=== PATIENT | female | born 1965 | race Hispanic/Latino ===

== ENCOUNTER 2021-03-22 09:53 | Inpatient (IN) | payer OTHER ==
[~2021-03-22] VITALS: Ht 162.6 cm; Wt 94.8 kg
[2021-03-22] MEDS ORDERED: MORPHINE 4 MG SYG IM ONE (10:30)
[2021-03-22] MEDS ORDERED: MORPHINE 4 MG SYG IV ONE ×2 (10:30→14:00)
[2021-03-22] MEDS ORDERED: PROPOFOL 10 MG/ML 20ML VIAL IV ONE (10:37)
[2021-03-22] MEDS ORDERED: ONDANSETRON 4MG INJ ONE (10:37)
[2021-03-22] MEDS ORDERED: KETAMINE HCL 100 MG/ML 5ML VIAL IJ ONE (10:48)
[2021-03-22] MEDS ORDERED: MIDAZOLAM HCL 1 MG/ML 2ML VIAL ONE (11:20)
[2021-03-22] MEDS ORDERED: ONDANSETRON 4MG INJ IVP PRN (15:30)
[2021-03-22] MEDS: MORPHINE 2 MG SYG IVP PRN (19:41)
[2021-03-22 21:35] VITALS: BP 146/81
[2021-03-22 23:58] VITALS: BP 159/92
[2021-03-23] MEDS ORDERED: KETOROLAC 30MG VIAL (30MG/ML) IV ONE
[2021-03-23 03:58] LABS: BASOPHILS % (AUTO) 0.6 % (0.0-5.0); EOSINOPHILS % (AUTO) 0.7 % (0.0-8.0); HEMATOCRIT 39.3 % (36-48); LYMPHOCYTES % (AUTO) 25.9 % (21.0-51.0); MEAN CORPUSCULAR HEMOGLOBIN 28.6 pg (27.0-33.0); MEAN CORPUSCULAR HGB CONC 31.6 g/dL (32.0-36.0); MEAN CORPUSCULAR VOLUME 90.6 fL (79-99); MONOCYTES % (AUTO) 9.3 % (3.0-13.0); NEUTROPHILS % (AUTO) 62.9 % (40.0-77.0); PLATELET COUNT (AUTO) 309 K/uL (130-400); RED BLOOD CELL COUNT(AUTO) 4.34 MIL/uL (4.00-5.50); RED CELL DISTRIBUTION WIDTH 13.7 % (11.0-15.5); WHITE BLOOD COUNT (AUTO) 10.7 K/uL (4.8-10.8)
[2021-03-23 04:03] LABS: HEMOGLOBIN A1C 6.3 % (4.0-6.0)
[2021-03-23] MEDS: MORPHINE 2 MG SYG IVP PRN ×3 (04:05→22:07)
[2021-03-23 04:09] VITALS: BP 146/82
[2021-03-23 04:11] LABS: ALBUMIN 3.6 g/dL (3.5-5.0); BILIRUBIN,TOTAL 0.6 mg/dL (0.2-1.0); CREATININE 0.9 mg/dL (0.5-1.5); MAGNESIUM 2.3 mg/dL (1.80-2.40); POTASSIUM 3.9 mmol/L (3.5-5.1); TOTAL PROTEIN, SERUM 7.1 g/dL (6.0-8.3)
[2021-03-23 07:30] VITALS: BP 164/87
[2021-03-23] MEDS: ACETAMINOPHEN 325 MG TAB PO PRN (08:15)
[2021-03-23] MEDS: ENOXAPARIN SODIUM 30 MG/0.3 ML SQ SCH (08:21)
[2021-03-23 11:00] VITALS: BP 156/87
[2021-03-23 16:00] VITALS: BP 140/70
[2021-03-23 20:30] VITALS: BP 157/88
[2021-03-23 23:51] VITALS: BP 143/70
[2021-03-24] VITALS (30 sets, daily range): BP systolic 125–155; BP diastolic 65–94
[2021-03-24] MEDS ORDERED: TOPI50TA24 PO (07:59)
[2021-03-24] MEDS: ENOXAPARIN SODIUM 30 MG/0.3 ML SQ SCH (09:00)
[2021-03-24] MEDS ORDERED: LIDOCAINE PF 100MG/5ML (2%) SYRINGE 5ML ONE (09:38)
[2021-03-24] MEDS ORDERED: PROPOFOL 10 MG/ML 20ML VIAL IV ONE ×2 (09:38→10:43)
[2021-03-24] MEDS ORDERED: FENTANYL CITRATE PF 50 MCG/1 ML 2ML VIAL ONE (09:38)
[2021-03-24] MEDS ORDERED: ROPIVACAINE 0.5% 5MG/ML 30ML IJ ONE (09:42)
[2021-03-24] MEDS ORDERED: CEFAZOLIN SODIUM 1 GM VIAL ONE (10:21)
[2021-03-24] MEDS ORDERED: ROCURONIUM 10MG/1ML SYR 10 MG/ML ML ONE (10:43)
[2021-03-24] MEDS ORDERED: GLYCOPYRROLATE 1 MG/5 ML SYRINGE ONE (10:58)
[2021-03-24] MEDS ORDERED: NEOSTIGMINE 5MG/5ML SYR IV ONE (10:58)
[2021-03-24] MEDS ORDERED: KETOROLAC 30MG VIAL (30MG/ML) ONE (11:00)
[2021-03-24] MEDS ORDERED: LIDOCAINE HCL 400MG/20ML VIAL ONE (11:00)
[2021-03-24] MEDS ORDERED: ONDANSETRON 4MG INJ ONE (11:00)
[2021-03-24] MEDS ORDERED: MEPERIDINE-PF 25 MG/ML SYG ONE (12:03)
[2021-03-24] MEDS: MORPHINE 2 MG SYG IVP PRN ×2 (12:59→18:30)
[2021-03-24] MEDS: ACETAMINOPHEN 325 MG TAB PO PRN (23:24)
[2021-03-25] MEDS: MORPHINE 2 MG SYG IVP PRN ×3 (02:25→23:01)
[2021-03-25 03:59] LABS: HEMATOCRIT 38.8 % (36-48); MEAN CORPUSCULAR HEMOGLOBIN 28.7 pg (27.0-33.0); MEAN CORPUSCULAR HGB CONC 31.7 g/dL (32.0-36.0); MEAN CORPUSCULAR VOLUME 90.7 fL (79-99); RED BLOOD CELL COUNT(AUTO) 4.28 MIL/uL (4.00-5.50); RED CELL DISTRIBUTION WIDTH 13.7 % (11.0-15.5); WHITE BLOOD COUNT (AUTO) 12.8 K/uL (4.8-10.8)
[2021-03-25 04:10] LABS: MAGNESIUM 2.1 mg/dL (1.80-2.40); POTASSIUM 3.9 mmol/L (3.5-5.1)
[2021-03-25 04:19] VITALS: BP 133/73
[2021-03-25] MEDS: ACETAMINOPHEN 325 MG TAB PO PRN ×2 (06:22→12:48)
[2021-03-25 07:30] VITALS: BP 144/80
[2021-03-25] MEDS: ENOXAPARIN SODIUM 30 MG/0.3 ML SQ SCH (08:49)
[2021-03-25 11:00] VITALS: BP 129/95
[2021-03-25] MEDS ORDERED: TRAMADOL HCL 50 MG TABLET ONE (13:16)
[2021-03-25 16:00] VITALS: BP 139/78
[2021-03-25 20:24] VITALS: BP 127/84
[2021-03-25] MEDS: TRAMADOL HCL 50 MG TABLET PO PRN (20:30)
[2021-03-25 23:41] VITALS: BP 132/74
[2021-03-26 04:22] VITALS: BP 134/75
[2021-03-26 08:31] VITALS: BP 141/81
[2021-03-26] MEDS: ENOXAPARIN SODIUM 30 MG/0.3 ML SQ SCH (09:20)
[2021-03-26] MEDS: MORPHINE 2 MG SYG IVP PRN ×3 (09:20→23:15)
[2021-03-26 10:34] VITALS: BP 145/91
[2021-03-26] MEDS: TRAMADOL HCL 50 MG TABLET PO PRN (14:54)
[2021-03-26 16:35] VITALS: BP 151/89
[2021-03-26 20:00] VITALS: BP 129/52
[2021-03-26] MEDS: ACETAMINOPHEN 325 MG TAB PO PRN (20:42)
[2021-03-27] VITALS: BP 142/72
[2021-03-27 04:00] VITALS: BP 130/68
[2021-03-27] MEDS: MORPHINE 2 MG SYG IVP PRN (08:07)
[2021-03-27] MEDS: ENOXAPARIN SODIUM 30 MG/0.3 ML SQ SCH (08:09)
[2021-03-27 08:37] VITALS: BP 138/86
[2021-03-27 10:51] VITALS: BP 138/78
[2021-03-27] MEDS: TRAMADOL HCL 50 MG TABLET PO PRN (12:45)
[2021-03-27 16:52] VITALS: BP 140/80
[2021-03-27 20:00] VITALS: BP 130/81
== END 2021-03-27 22:09 | DRG 494 ==
LOC: EDH 09:53 → UNDOADMOB 14:36 → INTOOBSV 14:36 → EDHIP 14:36 → OBSVTOIN 14:36 → 4AH 21:35
PROVIDERS: ADMIT Internal Medicine Infectious Disease; ATTEND Internal Medicine Infectious Disease
PROC: 0QSG04Z Reposition Right Tibia with Internal Fixation Device, Open Approach (ICD-10-PCS; principal; 2021-03-27)
PROC: 0QSJ04Z Reposition Right Fibula with Internal Fixation Device, Open Approach (ICD-10-PCS; 2021-03-27)
DX: S82.61XA Displaced fracture of lateral malleolus of right fibula, initial encounter for closed fracture (principal); S43.014A Anterior dislocation of right humerus, initial encounter; E66.9 Obesity, unspecified; Z20.822 Contact with and (suspected) exposure to COVID-19; S93.431A Sprain of tibiofibular ligament of right ankle, initial encounter; R53.81 Other malaise; W18.30XA Fall on same level, unspecified, initial encounter; Z68.35 Body mass index [BMI] 35.0-35.9, adult; Y93.89 Activity, other specified; Y92.098 Other place in other non-institutional residence as the place of occurrence of the external cause; Y99.0 Civilian activity done for income or pay; Z88.8 Allergy status to other drugs, medicaments and biological substances
CPT/HCPCS: 36415; 73030; 73221; 73600; 73610; 73721; 80048; 80053; 83036; 83735; 85025; 85027; 87635; 97039; G0378; J0690; J1650; J1885; J2001; J2175; J2250; J2270; J2405; J2704; J2710; J2795; J3010; J3490

== ENCOUNTER 2021-08-09 21:44 | Emergency (ER) | payer OTHER ==
[~2021-08-09] VITALS: Ht 162.6 cm; Wt 91.6 kg
[~2021-08-09 21:44] MED LIST: TOPI50TA24 PO
[2021-08-09 22:30] LABS: BASOPHILS % (AUTO) 0.6 % (0.0-5.0); EOSINOPHILS % (AUTO) 1.5 % (0.0-8.0); HEMATOCRIT 41.5 % (36-48); LYMPHOCYTES % (AUTO) 30.3 % (21.0-51.0); MEAN CORPUSCULAR HEMOGLOBIN 28.9 pg (27.0-33.0); MEAN CORPUSCULAR HGB CONC 31.3 g/dL (32.0-36.0); MEAN CORPUSCULAR VOLUME 92.2 fL (79-99); MONOCYTES % (AUTO) 5.3 % (3.0-13.0); NEUTROPHILS % (AUTO) 61.7 % (40.0-77.0); PLATELET COUNT (AUTO) 273 K/uL (130-400); RED CELL DISTRIBUTION WIDTH 13.5 % (11.0-15.5); WHITE BLOOD COUNT (AUTO) 12.3 K/uL (4.8-10.8)
[2021-08-09 22:40] LABS: CREATININE 0.9 mg/dL (0.5-1.5); POTASSIUM 4.4 mmol/L (3.5-5.1)
[2021-08-09 22:43] LABS: ALBUMIN 3.9 g/dL (3.5-5.0); BILIRUBIN,TOTAL 0.3 mg/dL (0.2-1.0); TOTAL PROTEIN, SERUM 7.5 g/dL (6.0-8.3)
[2021-08-10 00:32] VITALS: BP 138/70
== END 2021-08-10 00:43 | disposition home or self-care (01) ==
LOC: EDH 21:44
DX: M79.604 Pain in right leg (principal); G43.909 Migraine, unspecified, not intractable, without status migrainosus; Z88.6 Allergy status to analgesic agent; Z79.899 Other long term (current) drug therapy; Z98.890 Other specified postprocedural states
CPT/HCPCS: 36415; 71045; 80053; 84484; 85025; 85378; 93005; 93971